=== PATIENT | female | born 1940 ===

== ENCOUNTER 2024-05-22 14:00 | Outpatient (REF) | payer MEDICAID, SELFPAY ==
[2024-05-22 16:13] LABS: MANUAL DIFF FLAG NO
--- OUTSIDE RECORDS SUMMARY | 2024-05-22 16:16 | XMS_ITS | Encounter Summary ---
Author Organization [employer] Address [address] [place] [address] Care Team Providers Care Pattern Drum Maker Name Role Phone Tish Mendieta MD Primary Care Provide r Reason for Visit * Reason Onset Date Comments case back from lab 09/23/2023 Encounter Details Date Type Department Care Team (Late st Contact Info) Description 09/23/2023 Telephone [facility] ADULT DENTAL [address] [place] [address] Dallas Cadena DDS [address] [place] [address] case back from lab Social History Tobacco Use Types Packs/Day Years Used Date Smoking Tobacco: Never Smokeless Tobacco: Never Alcohol Use Standard Drinks/Week Comments Never 0 (1 standard drink = 0.6 oz pur e alcohol) Depression Answer Date Recorded Patient Health Questionnaire-9 Score 0 08/21/2022 Housing Stability Answer Date Recorded What is your housing situation today? I have josé antonio hopkins 01/17/[address] you li ve. Do you have problems with any of the following? None of the above 01/17/2023 Food Insecurity Answer Date Recorded Within the past 12 months, y ou worried that your food would run out before you got money to buy more: Never True 01/17/2023 Within the past 12 months,th e food you bought just didn't last and you didn't have enough money to get more: Never True Transportation Answer Date Recorded In the past 12 months, has l ack of transportation kept you from medical appts, meetings, work or from getting things needed for daily living? No 01/17/2023 Utilities Answer Date Recorded In the past 12 months, has t he electric, gas, oil or water company threatened to shut off services in your home? No 01/17/2023 Depression Answer Date Recorded Patient Health Questionnaire-2 Score 0 08/21/2022 Comments Unknown Sex and Gender Information Value Date Recorded Sex Assigned at Female 01/22/2022 10:40 AM EDT Legal Sex Female 10:40 AM EDT Gender Identity Female 01/22/2022 10:40 AM EDT Sexual Orientation Straight 01/22/2022 10 :40 AM EDT documented as of this encounter Miscellaneous Notes * Telephone Encounter - Tanya Renee - 10/02/2023 10:53 AM EDT Patient is looking for her dentures jaiheena yeung * Telephone Encounter - Dallas Cadena DDS - 09/23/2023 2:55 PM EDT Called today @ 2:56 PM spoke with Pt's daughter, mutual agreement to present tomorrow 09-24-23 in [place] for denture's try in. (Double book) Dr. Cadena * Telephone Encounter - Blank Iyer - 09/23/2023 1:31 PM EDT Daughter of patient calling in to confirm if case is back from lab. Patient is travelling soon and looking to finish process before travelling. Pls reach out to patient documented in this encounter Plan of Treatment Not on file documented as of this encounter Visit Diagnoses Not on filedocumented in this encounter Additional Health Concerns Assessment Noted Time PHQ-9 Depression Total Score: 0 08/22/19 23 3:00 PM EDT documented as of this encounter Care Teams Pattern Drum Maker Relationship Specialty Start Date End Date Tish Mendieta MD [address] [place] [id number] PCP - General Family Medicine 08/17/21 documented as of this encounter
--- OUTSIDE RECORDS SUMMARY | 2024-05-22 16:16 | XMS_ITS | Encounter Summary ---
Author Organization [employer] Address [address] [place] [address] Care Team Providers Care Employee Communications Specialist Name Role Phone Tish Mendieta MD Primary Care Provide r Reason for Visit * Reason Comments Pre-visit Planning (Unable to reach for PVP screening, LVM) Encounter Details Date Type Department Care Team ([facility] st Contact Info) Description 04/24/2024 Patient Outreach [facility] MEDICINE [address] [place] [address] Tish Mendieta MD [address] [place] [address] Pre-visit Planning ((Unable to reach for PVP screening, LVM)) Social History Tobacco Use Types Packs/Day Years [...] AM EDT documented as of this encounter Progress Notes * Irma Renteria - 04/24/2024 9:21 AM EST CC Irma. Placed outbound call to patient to complete pre-visit planning. No answer at this time. Patient name and were not confirmed. CC left voicemail requesting return call. Direct contact information provided. documented in this encounter Plan of Treatment Not on file documented as of this encounter Visit Diagnoses Not on filedocumented in this encounter Additional Health Concerns Assessment Noted Time PHQ-9 Depression Total Score: 0 08/22/19 23 3:00 PM EDT documented as of this encounter Care Teams Employee Communications Specialist Relationship Specialty Start Date End Date Tish Mendieta MD [address] [place] [id number] PCP - General Family Medicine 08/17/21 documented as of this encounter
--- OUTSIDE RECORDS SUMMARY | 2024-05-22 16:16 | XMS_ITS | Encounter Summary ---
Author Organization [employer] Address [address] 7[address] [place] [address] Care Team Providers Care Peoplesoft Name Role Phone Tish Mendieta MD Primary Care Provide r Encounter Details Date Type Department Care Team (Late st Contact Info) Description 05/07/2024 2:45 PM EST Office Visit [facility] [address] [place], [place] [phone] Tish Mendieta MD [address] [place], [place] [phone] Dyslipidemia (Primary Dx); Hemorrhoids, unspecified hemorrhoid type; Constipation, unspecified constipation type Social History Tobacco Use Types Packs/Day Years Used Date Smoking Tobacco: Never Passive Smoke Exposure: Never Smokeless Tobacco: Never Tobacco Cessation:Counseling Given: Not Answered Alcohol Use Standard Drinks/Week Comments Never 0 [...] AM EDT documented as of this encounter Last Filed Vital Signs Vital Sign Reading Time Taken Comments Blood Pressure 134/70 05/07/2024 2:26 PM EST Pulse 76 05/07/2024 2:13 PM EST Temperature 36.4 ??C (97.6 ??F) 05/07/2024 2:13 PM ES T Respiratory Rate 20 05/07/2024 2:13 PM EST Oxygen Saturation - - Inhaled Oxygen Concentration - - Weight 59.5 kg (131 lb 3.2 oz) 05/07/2024 2:13 P M EST Height 157.5 cm (5' 2 ) 05/07/2024 2:13 PM EST Body Mass Index 24 05/07/2024 2:13 PM EST documented in this encounter Progress Notes * Tish Ramirez MD - 05/07/2024 2:45 PM EST SUBJECTIVE: Geovanna Lakhani is a 83 y.o. year old female who presents for Chronic Disease Management Concerns for today's visit: Occupation:retired Lives with:with daughter and granddaughter Social Hx: denies drinking EtOH, denies smoking cigarettes and denies recreational drug use. Diet:regular Exercise:sedentary Hospitalizations/Surgeries: cataract surgery bilateral Eye Care:patient will book her appointment Dental Care:up to date PMHx:see below Immunizations: Reviewed with patient, today she declines vaccines Acute Concerns: Patient complains of occasionally constipation, she also has some hemorrhoids but reports Preparation H does help her with this Social History Social History Narrative Not on file Patient Active Problem List Diagnosis Dyslipidemia Osteoarthritis of both shoulders Osteoporosis Preop examination Atypical mole Routine adult health maintenance Seborrheic keratoses Primary insomnia Hemorrhoids Health care maintenance 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 Review of Systems Constitutional: Negative. HENT: Negative. Respiratory: Negative. Cardiovascular: Negative. Gastrointestinal: Positive for constipation. Negative for abdominal distention, abdominal pain, anal bleeding, blood in stool, diarrhea, nausea, rectal pain and vomiting. OBJECTIVE: Vitals: 05/07/24 1413 05/07/24 1426 BP: (!) 153/77 134/70 BP Location: Left arm Right arm Patient Position: Sitting Sitting BP Cuff Size: Adult Adult Pulse: 76 Resp: 20 Temp: 97.6 ??F (36.4 ??C) TempSrc: Oral Weight: 131 lb 3.2 oz (59.5 kg) Height: 5' 2 (1.575 m) Physical Exam Constitutional: Appearance: Normal appearance. Cardiovascular: Rate and Rhythm: Normal rate and regular rhythm. Pulmonary: Effort: Pulmonary effort is normal. Breath sounds: Normal breath sounds. Abdominal: General: Abdomen is flat. Palpations: Abdomen is soft. Musculoskeletal: Right lower leg: No edema. Left lower leg: No edema. Neurological: Mental Status: She is alert. Follow Up: Follow up in about 6 months (around 11/04/2024) for chronic conditions . Current Outpatient Medications on File Prior to Visit Medication Sig Dispense Refill alendronate (Fosamax) 70 MG tablet TAKE 1 TABLET BY MOUTH ONCE EVERY WEEK 30 MINUTES BEFORE FIRST FOOD OR BEVERAGE OR MEDICATION OF THE DAY 12 tablet 1 cholecalciferol (Vitamin D-3) 50 MCG (1999) capsule TAKE 1 CAPSULE BY MOUTH DAILY Melatonin 3 MG capsule Take 1 capsule by mouth at bedtime. 30 capsule 2 pravastatin (Pravachol) 40 MG tablet TAKE 1 TABLET(40 MG) BY MOUTH IN THE MORNING 90 tablet 2 [DISCONTINUED] Multiple Vitamin (multivitamin) tablet Take 1 tablet by mouth in the morning. 30 tablet 3 [DISCONTINUED] phenylephrine 0.25% (Preparation H) 0.25-14-74.9 % ointment Insert 1 Application into the rectum at bedtime. 56 g 1 No current facility-administered medications on file prior to visit. Problem List Items Addressed This Visit Dyslipidemia - Primary Counseling about healthy diet done today Blood work ordered today patient will be contacted with results Relevant Orders CBC auto differential Comprehensive Metabolic Panel Hepatitis C Antibody with Reflex to HCV, RNA, Quantitative, Real-Time PCR Lipid Panel, Standard TSH with Reflex to Free T4 Hemorrhoids Relevant Medications phenylephrine 0.25% (Preparation H) 0.25-14-74.9 % ointment Constipation I advised patient to drink more water and include more fiber in her diet I also encourage patient to include daily walks on her lifestyle I will prescribe MiraLAX she can take it as needed Relevant Medications polyethylene glycol, PEG, 3350 (MiraLax) 17 GM/SCOOP powder Multiple Vitamin (multivitamin) tablet documented in this encounter Miscellaneous Notes * Assessment & Plan Note - Tish Ramirez MD - 05/07/2024 3:45 PM EST Associated Problem(s): Dyslipidemia Counseling about healthy diet done today Blood work ordered today patient will be contacted with results * Assessment & Plan Note - Tish Ramirez MD - 05/07/2024 3:45 PM EST Associated Problem(s): Constipation I advised patient to drink more water and include more fiber in her diet I also encourage patient to include daily walks on her lifestyle I will prescribe MiraLAX she can take it as needed documented in this encounter Plan of Treatment Scheduled Orders Name Type Priority Associated Diagnoses Orde r Schedule CBC auto differential Lab Routine Dyslipidemia Expected: 05/07/2024 (Approximate), Expires: 05/07/2025 Comprehensive Metabolic Panel Lab Routine Dyslipidemia Expected: 05/07/2024 (Approximate), Expires: 05/07/2025 Hepatitis C Antibody with Reflex to HCV, RNA, Quantitative, Real-Time PCR Lab Routine Dyslipidemia Expected: 05/07/2024, Expires: 05/07/2025 Lipid Panel, Standard Lab Routine Dyslipidemia Expected: 05/07/2024 (Approximate), Expires: 05/07/2025 TSH with Reflex to Free T4 Lab Routine Dyslipidemia Expected: 05/07/2024 (Approximate), Expires: 05/07/2025 documented as of this encounter Visit Diagnoses Diagnosis Dyslipidemia- Primary Other and unspecified hyperlipidemia Hemorrhoids, unspecified hemorrhoid type Constipation, unspecified constipation type documented in this encounter Additional Health Concerns Assessment Noted Time PHQ-9 Depression Total Score: 0 08/22/19 23 3:00 PM EDT documented as of this encounter Care Teams Peoplesoft Relationship Specialty Start Date End Date Tish Mendieta MD [address] [place] [id number] PCP - General Family Medicine 08/17/21 documented as of this encounter
--- OUTSIDE RECORDS SUMMARY | 2024-05-22 16:16 | XMS_ITS | Clinical Summary ---
Author Organization [employer] Address [address] [facility] 7[address] [place] [address] Care Team Providers Care Medical Claims Representative Name Role Phone Tish Mendieta MD Primary Care Provide r Allergies No known active allergies Medications cholecalciferol (Vitamin D-3) 50 MCG (1999) capsule TAKE 1 CAPSULE BY MOUTH DAILY 12/13/19 22 Active Melatonin 3 MG capsuleIndicati ons:Primary insomnia Take 1 capsule by mouth at bedtime. 30 capsule 2 04/30/19 24 Active pravastatin (Pravachol) 40 MG tabletIndicatio ns:Essential hypertension TAKE 1 TABLET(40 MG) BY MOUTH IN THE MORNING 90 tablet 2 03/04/20 24 Active polyethylene glycol, PEG, 3350 (MiraLax) 17 GM/SCOOP powderIndicatio ns:Constipation , unspecified constipation type Take 17 g by mouth Once per day. 527 g 2 05/07/19 25 2024 Active phenylephrine 0.25% (Preparation H) 0.25-14-74.9 % ointmentIndicat ions:Hemorrhoid s, unspecified hemorrhoid type Insert 1 Application into the rectum at bedtime. 56 g 1 05/07/19 25 Active Multiple Vitamin (multivitamin) tabletIndicatio ns:Constipation , unspecified constipation type Take 1 tablet by mouth Once per day. 30 tablet 3 05/07/19 25 Active alendronate (Fosamax) 70 MG tablet TAKE 1 TABLET BY MOUTH ONCE EVERY WEEK 30 MINUTES BEFORE FIRST FOOD OR BEVERAGE OR MEDICATION OF THE DAY 12 tablet 1 05/08/19 25 Active phenylephrine 0.25% (Preparation H) 0.25-14-74.9 % ointmentIndicat ions:Hemorrhoid s, unspecified hemorrhoid type Insert 1 Application into the rectum at bedtime. 56 g 1 04/30/19 24 2024 Discontinued(R eorder (will not trigger notification to Pharmacy)) Multiple Vitamin (multivitamin) tabletIndicatio ns:Health care maintenance Take 1 tablet by mouth in the morning. 30 tablet 3 04/30/19 24 2024 Discontinued(R eorder (will not trigger notification to Pharmacy)) alendronate (Fosamax) 70 MG tablet TAKE 1 TABLET BY MOUTH ONCE EVERY WEEK 30 MINUTES BEFORE FIRST FOOD OR BEVERAGE OR MEDICATION OF THE DAY 12 tablet 1 08/01/19 24 2024 Discontinued Active Problems Problem Noted Date Diagnosed Date Constipation 05/07/2024 Assessment & Plan (05/07/2024 3:45 PM EST): I advised patient to drink more water and include more fiber in her diet I also encourage patient to include daily walks on her lifestyle I will prescribe MiraLAX she can take it as needed Severe atrophy of the maxilla 08/14/2023 Complete edentulism 06/20/2023 Primary insomnia 04/30/2023 Hemorrhoids 04/30/2023 Health care maintenance 04/30/2023 Routine adult health maintenance 09/17/2022 Assessment & Plan (09/17/2022 10:43 AM EDT): PHQ: 0 Substance use: Denies ever smoking. Denies etoh Lipids: lipids ordered DEXA: She reports last DEXA was 2 or 3 years ago at [facility]. Eye exam: 4 days ago had surgery, [place], cataracts removal. First did left then did right. Dental home: Advised [facility] dental. Patient to f/up in one year for annual exam. Seborrheic keratoses 09/17/2022 Assessment & Plan (09/17/2022 10:53 AM EDT): Patient states recent changes in her three abdominal papules. I believe this warrants further assessment by dermatology. Preop examination 08/21/2022 Assessment & Plan (08/21/2022 3:19 PM EDT): 81 y.o. female comes today for preop visit for left side cataract patient has had surgeries under anesthesia before without complications or reactions Patient denies chest pain, SOB, palpitations, PND, dizziness Patient reports no SOB with exertion RCRI score 0 patient is low risk for low risk procedure Surgery should proceed as schedule Atypical mole 08/21/2022 Dyslipidemia 05/23/2022 Assessment & Plan (05/07/2024 3:45 PM EST): Counseling about healthy diet done today Blood work ordered today patient will be contacted with results Osteoarthritis of both shoulders 05/23/2022 Osteoporosis 05/23/2022 Encounters Date Type Department Care Team Description 05/08/2024 Refill [facility] MEDICINE [address] [place] [id number] Tish Mendieta MD 05/07/2024 2:45 PM EST Office Visit [address] [address] Tish Mendieta MD Dyslipidemia (Primary Dx); Hemorrhoids, unspecified hemorrhoid type; Constipation, unspecified constipation type 05/07/2024 Travel 04/24/2024 Patient Outreach [facility] MEDICINE [address] [place] [phone] Tish Mendieta MD Pre-visit Planning ((Unable to reach for PVP screening, LVM)) 03/03/2024 Refill [facility] MEDICINE [address] [place] [address] Tish Mendieta MD Essential hypertension from Last 3 Months Immunizations Name Administration Dates Next Due Influenza injectable quadrivalent preservative f ree 04/30/2023 Moderna Covid-19 Vaccine 12+ 09/29/2021,03/15/20 21 Pfizer Covid-19 Vaccine 12+ cathy-sucrose (Irene C ap) 06/23/2020,05/26/2020 Pneumococcal Conjugate PCV 20 05/30/2022 Social History Tobacco Use Types Packs/Day Years [...] Orientation Straight 01/22/2022 10 :40 AM EDT Last Filed Vital Signs Vital Sign Reading Time Taken Comments Blood Pressure 134/70 05/07/2024 2:26 PM EST Pulse 76 05/07/2024 2:13 PM EST Temperature 36.4 ??C (97.6 ??F) 05/07/2024 2:13 PM ES T Respiratory Rate 20 05/07/2024 2:13 PM EST Oxygen Saturation 97% 04/30/2023 2:24 PM EST Inhaled Oxygen Concentration - - Weight 59.5 kg (131 lb 3.2 oz) 05/07/2024 2:13 P M EST Height 157.5 cm (5' 2 ) 05/07/2024 2:13 PM EST Body Mass Index 24 05/07/2024 2:13 PM EST Plan of Treatment Health Maintenance Due Date Last Done Comments Dental Prophylaxis 1938 Dental X-Ray: Bitewings 1938 Alcohol/Substance Use Screening 1950 DTaP/Tdap/Td Vaccines (1 - Tdap) 1957 Zoster Vaccines (1 of 2) 1988 RSV Patients and Patients Aged 60 years or older (1 - 1-dose 75+ series) 2013 Depression Screening 08/22/2023 08/21/2022, 08/22/19 SDOH Screening 08/22/2023 08/21/2022 COVID-19 Vaccine ( season) 2023 09/29/2021, 03/15/2021, 06/23/2020, Additional history exists Influenza Vaccine (#1) 2023 04/30/2023 Dental Oral Exam 12/22/2023 06/20/2023 Tobacco Screening 05/07/2025 05/07/2024 Dental X-Ray: Full Mouth 06/20/2026 06/20/2023 Lipid Panel 09/18/2027 09/17/2022, 08/17/2021 Pneumococcal Vaccine: 50+ Years Completed 05/30/2022 HIB Vaccines Aged Out No longer eligi ble based on patient's age to complete this topic HPV Vaccines Aged Out No longer eligi ble based on patient's age to complete this topic Hepatitis A Vaccines Aged Out No long er eligible based on patient's age to complete this topic Hepatitis B Vaccines Aged Out No long er eligible based on patient's age to complete this topic IPV Vaccines Aged Out No longer eligi ble based on patient's age to complete this topic Meningococcal Vaccine Aged Out No kiera pietro eligible based on patient's age to complete this topic RSV under 20 months Aged Out No longe r eligible based on patient's age to complete this topic Rotavirus Vaccines Aged Out No longer eligible based on patient's age to complete this topic Procedures Procedure Name Priority Date/Time Associated Diagnosis Comments PANORAMIC RADIOGRAPHIC IMAGE Routine 06/20/2023 3:00 PM EDT COMPREHENSIVE ORAL EVALUATION - NEW OR ESTABLISHED PATIENT Routine 06/20/2023 3:00 PM EDT LIPID PANEL, STANDARD Routine 09/17/2022 10:45 AM EDT Routine adult health maintenance from Last 3 Months or Most Recently Relevant to Health Maintenance Results * (ABNORMAL) Lipid Panel, Standard (09/17/2022 10:45 AM EDT) Cholesterol, Total 225(H) <200 mg/dL [facility] HDL Cholesterol 42(L) > OR = 50 mg/dL [facility] Triglycerides 218(H) <150 mg/dL [facility] Comment: If a non-fasting specimen was collected, consider repeat triglyceride testing on a fasting specimen if clinically indicated. Sally et al. J. of Clin. Lipidol. 2015;9:129-169. LDL Cholesterol 147(H) mg/dL (calc) [facility] Comment: Reference range: <100 Desirable range <100 mg/dL for primary prevention; ?? <70 mg/dL for patients with CHD or diabetic patients with > or = 2 CHD risk factors. LDL-C is now calculated using the Greg-Naldo calculation, which is a validated novel method providing better accuracy than the Friedewald equation in the estimation of LDL-C. Greg SS et al. CALVIN. 2013;310(19): 3706-0705 (http://education.[employer]/faq/QMO435) Chol/HDLC Ratio 5.4(H) <5.0 (calc) [facility] Non-HDL Cholesterol 183(H) <130 mg/dL (calc) [facility] Comment: For patients with diabetes plus 1 major ASCVD risk factor, treating to a non-HDL-C goal of <100 mg/dL (LDL-C of <70 mg/dL) is considered a therapeutic option. Blood Venous blood specimen / Unknown 09/17/2022 10:45 AM EDT 09/17/2022 10:47 AM EDT Narrative [facility] - 09/17/2022 11:26 PM EDT FASTING:UNKNOWN FASTING: UNKNOWN Isai MELENDREZ LAB BLOOD ORDERABLES Final Res ult [facility] [address], [place] [address] [facility] [address] [place] [address] from Last 3 Months or Most Recently Relevant to Health Maintenance Insurance MEDICARE [facility] STANDARD DENTAL-[facility] MEDICAID STAND ADULT Care Teams Medical Claims Representative Relationship Specialty Start Date End Date Tish Mendieta MD [address] [place] [phone] PCP - General Family Medicine 08/17/21
--- OUTSIDE RECORDS SUMMARY | 2024-05-22 16:16 | XMS_ITS | Encounter Summary ---
Author Organization [employer] Address [address] [place] [address] Care Team Providers Care Performance Management Consultant Name Role Phone Tish Mendieta MD Primary Care Provide r Reason for Visit * Reason Onset Date Comments appt 05/23/2023 Encounter Details Date Type Department Care Team (Late st Contact Info) Description 05/23/2023 Telephone [facility] ADULT DENTAL [address] [place], [place] [phone] Joe, Faby [address] [place] [address] appt Social History Tobacco Use Types Packs/Day Years [...] encounter Miscellaneous Notes * Telephone Encounter - Blank Iyer - 05/23/2023 2:55 PM EST Patient is calling for appt. On waiting list since July 2022. documented in this encounter Plan of Treatment Not on file documented as of this encounter Visit Diagnoses Not on filedocumented in this encounter Additional Health Concerns Assessment Noted Time PHQ-9 Depression Total Score: 0 08/22/19 23 3:00 PM EDT documented as of this encounter Care Teams Performance Management Consultant Relationship Specialty Start Date End Date Tsih Mendieta MD [address] [place] [id number] PCP - General Family Medicine 08/17/21 documented as of this encounter
--- OUTSIDE RECORDS SUMMARY | 2024-05-22 16:16 | XMS_ITS | Encounter Summary ---
Author Organization [employer] Address [address] [place] [address] Care Team Providers Care Dairy Farm Worker Name Role Phone Tish Mendieta MD Primary Care Provide r Encounter Details Date Type Department Care Team (Latest Contact Info) Description 05/07/2024 Travel Social History Tobacco Use Types Packs/Day Years Used Date Smoking Tobacco: Never Passive Smoke Exposure: Never Smokeless Tobacco: Never Alcohol Use Standard [...] AM EDT documented as of this encounter Plan of Treatment Not on file documented as of this encounter Visit Diagnoses Not on filedocumented in this encounter Additional Health Concerns Assessment Noted Time PHQ-9 Depression Total Score: 0 08/22/19 23 3:00 PM EDT documented as of this encounter Care Teams Dairy Farm Worker Relationship Specialty Start Date End Date Tish Mendieta MD [address] [place] [address] PCP - General Family Medicine 08/17/21 documented as of this encounter
--- OUTSIDE RECORDS SUMMARY | 2024-05-22 16:16 | XMS_ITS | Encounter Summary ---
Author Organization [employer] Address [address] [facility] [address] [place] [address] Care Team Providers Care Slasher Hand Name Role Phone Tish Mendieta MD Primary Care Provide r Reason for Visit * Reason Comments Med Refill Encounter Details Date Type Department Care Team ([facility] st Contact Info) Description 05/08/2024 Refill [facility] MEDICINE [address] [place], [place] [phone] Tish Mendieta MD [address] [place] [address] Social History Tobacco Use Types Packs/Day Years [...] documented as of this encounter Care Teams Slasher Hand Relationship Specialty Start Date End Date Tish Mendieta MD [address] [place] [id number] PCP - General Family Medicine 08/17/21 documented as of this encounter
[2024-05-22 16:21] LABS: Basophils Percent Auto 0.3 % (0-2); Eosinophils Absolute Auto 0.2 X10*3/uL (0.0-0.4); Eosinophils Percent Auto 1.9 % (0-4); Hematocrit 37.9 % (37.0-47.0); Hemoglobin 12.4 g/dl (12.0-16.0); Imm Gran Abs Auto 0.03 X10*3/uL (0.00-0.03); Imm Gran Pct Auto 0.3 % (0.0-0.4); Lymphocytes Absolute Auto 3.1 X10*3/uL (1.2-4.9); Lymphocytes Percent Auto 34.9 % (20-40); Mean Corpuscular HGB Conc 32.7 g/dl (31.0-35.0); Mean Corpuscular Hemoglobin 30.2 pg (27.0-33.0); Mean Corpuscular Volume 92.4 fL (80.0-98.0); Mean Platelet Volume 10.2 fL (9.4-12.3); Monocytes Absolute Auto 0.6 X10*3/uL (0.1-1.2); Monocytes Percent Auto 6.7 % (2-11); Neutrophils Absolute Auto 4.9 x10*3/uL (2.0-8.3); Neutrophils Percent Auto 55.9 % (45-73); Platelet Count 251 X10*3/uL (160-400); Red Cell Distribution Width 12.2 % (11.0-16.0); White Blood Count 8.8 X10*3/uL (4.8-10.8)
[2024-05-22 16:50] LABS: Alanine Aminotransferase 17 U/L (0-31); Albumin Level 4.1 g/dL (3.5-5.0); Anion Gap 11 (12-20); Aspartate Amino Transferase 24 U/L (5-31); Bilirubin Total 0.5 mg/dL (0.0-1.0); Blood Urea Nitrogen 18 mg/dL (9-16); Carbon Dioxide 26 mmol/L (22-29); Chloride 107 mmol/L (96-108); Cholesterol 269 mg/dL (<200); Estimated Glomerular Filt Rate > 60; Glucose Random 94 mg/dL (60-115); HDL Cholesterol 40 mg/dL (>40); LDL Cholesterol Calculated 186 mg/dL (<100); Potassium 4.2 mmol/L (3.3-5.1); Sodium 140 mmol/L (135-145); Triglycerides 218 mg/dL (<150)
[2024-05-22 16:55] LABS: TSH reflex Free T4 1.55 uIU/mL (0.32-4.0)
[2024-05-22 17:54] LABS: Alkaline Phosphatase 87 U/L (39-117)
[2024-05-25 09:03] LABS: ~HepC Num1 0.23 S/CO (0.00-0.79); ~Hepatitis C Antibody Nonreactive (Nonreactive)
== END 2024-05-22 14:01 | disposition home or self-care (01) ==
LOC: HO.HHCL 14:00
PROVIDERS: Visit Provider Internal Medicine
DX: E78.5 Hyperlipidemia, unspecified (principal)
CPT/HCPCS: 36415; 80053; 80061; 84443; 85025; 86803